=== PATIENT | male | born 1950 | race Caucasian/White ===

== ENCOUNTER → 2017-02-01 | Outpatient (CLI) | payer OTHER | LOC: BHFA 10:30 | PROVIDERS: ATTEND Internal Medicine Cardiovascular Disease | DX: R00.2 Palpitations (principal) ==

== ENCOUNTER → 2017-03-08 | Outpatient (CLI) | payer OTHER | LOC: BHFA 09:30 | PROVIDERS: ATTEND Internal Medicine Cardiovascular Disease | DX: R07.9 Chest pain, unspecified (principal); R06.02 Shortness of breath; R94.31 Abnormal electrocardiogram [ECG] [EKG] | CPT/HCPCS: 78452; 93017; A9500 ==

== ENCOUNTER 2017-03-23 09:32 | Day surgery (SDC) | payer OTHER ==
[2017-03-23] MEDS ORDERED: NS 1,000 ML IV ONE (09:33)
[2017-03-23] MEDS ORDERED: FAMOTIDINE 20 MG TAB PO ONE (09:33)
[2017-03-23] MEDS ORDERED: ASPIRIN EC 325 MG TAB PO ONE (09:33)
[2017-03-23] MEDS ORDERED: DIAZEPAM 5 MG TAB PO ONE (09:33)
[2017-03-23] MEDS ORDERED: diphenhydrAMINE 25 MG CAP PO ONE ×2 (09:33→10:06)
--- NOTE | 2017-03-23 09:58 | CPEKG ---
Heart Rate: 49 RR Interval: 1224 P-R Interval: 212 QRSD Interval: 150 QT Interval: 488 QTC Interval: 441 P [place]: 55 QRS [place]: -79 T Wave [place]: -32 EKG Severity - ABNORMAL ECG - EKG Impression: SINUS BRADYCARDIA EKG Impression: RIGHT BUNDLE BRANCH BLOCK EKG Impression: INFERIOR INFARCT, AGE INDETERMINATE Electronically Signed By: Cr Handy 23-Mar-2017 13:11:16
[2017-03-23] MEDS ORDERED: FAMOTIDINE 20 MG TAB ONE (10:06)
[2017-03-23] MEDS ORDERED: ASPIRIN EC 81 MG TAB PO ONE (10:07)
[2017-03-23] MEDS ORDERED: DIAZEPAM 5 MG TAB ONE (10:07)
[2017-03-23 10:15] LABS: % IMMATURE GRANULYOCYTES 0.4 % (0.0-1.1); ABSOLUTE IMMATURE GRANULOCYTES 0.02 10^3/uL (0.00-0.10); ADD DIFF? NO; ADD MORPH? NO; ADD SCAN? NO; ATYPICAL LYMPHOCYTE FLAG 0 (0-99); FRAGMENT RBC FLAG 0 (0-99); HEMATOCRIT 40.6 % (40.0-51.0); HEMOGLOBIN 15.1 g/dL (13.7-17.5); LEFT SHIFT FLG 0 (0-99); LIPEMIA HEMOLYSIS FLAG 90 (0-99); MEAN CELL HEMOGLOBIN 35.9 pg (27.9-34.1); MEAN CELL HEMOGLOBIN CONCENTR. 37.2 g/dL (32.4-36.7); MEAN CELL VOLUME 96.4 fL (81.5-99.8); MEAN PLATELET VOLUME 9.6 fL (8.7-11.7); PLATELET CLUMPS FLAG 0 (0-99); PLATELET COUNT 162 10^3/uL (150-400); RED BLOOD CELL COUNT 4.21 10^6/uL (4.40-6.38); RED CELL DISTRIBUTION WIDTH 12.9 % (11.5-15.2)
[2017-03-23 10:18] LABS: INR 1.12 (0.83-1.16); PROTIME(PATIENT) 14.6 SEC (12.0-15.0)
[2017-03-23 10:24] LABS: ANION GAP 10 mEq/L (8-16); CARBON DIOXIDE 25 mEq/l (22-31); CHLORIDE 104 mEq/L (97-110); CHOLESTEROL 105 mg/dL (140-220); CHOLESTEROL/HDL RATIO 3.18 RATIO (1.00-4.97); CREATININE 0.9 mg/dL (0.7-1.3); GLOMERULAR FILTRATION RATE > 60; GLUCOSE 98 mg/dL (70-100); HIGH DENSITY LIPOPROTEIN 33 mg/dL (40-65); LDL/HDL RATIO 1.48 RATIO (1.00-3.64); LOW DENSITY LIPOPROTEIN 49 mg/dL (80-100); MAGNESIUM 1.9 mg/dL (1.6-2.3); NON-HIGH DENSITY LIPOPROTEIN 72 mg/dL (90-129); POTASSIUM 4.3 mEq/L (3.5-5.2); SODIUM 139 mEq/L (134-144); TRIGLYCERIDE 119 mg/dL (40-150); VERY LOW DENSITY LIPOPROTEINS 23 mg/dL (8-25)
[2017-03-23] MEDS ORDERED: LIDOCAINE 1% 300 MG/30 ML SDV ONE (12:21)
[2017-03-23] MEDS ORDERED: MIDAZOLAM 2 MG/2 ML VIAL ONE (12:21)
[2017-03-23] MEDS ORDERED: fentaNYL 100 MCG/2 ML INJ ONE (12:21)
[2017-03-23] MEDS ORDERED: IOPAMIDOL (ISOVUE-370) 150 ML BTL IV ONE (12:22)
--- NOTE | 2017-03-23 12:59 | PDDXCAT ---
Diagnostic Cath Note - . Date: 03/23/17 [employer] Teacher: Polina Indication: CCC Class III and IV angina on medical treatment - Procedure Access: right groin Procedure: left heart catheterization - Materials Left Heart Cath size: 6F Left Heart Cath materials: standard multipack (JL4, JR4, pigtail) - Findings-Left Heart Catheterization LAD: LAD arises from nearly a separate ostium from the left coronary cusp. The previously stented LAD diagonal bifurcation is widely patent without evidence of flow-limiting obstructions, dissection, or thrombus. There is evidence of ztgj-qq-[id number] collaterals from both the distal LAD and septal perforators. There is PMAELA III flow. LCX: The circumflex obtuse marginal system has also been previously stented and is widely patent without evidence of significant flow-limiting disease. There is evidence of dygl-se-wyhuc collaterals from the distal dircumflex obtuse marginal. There is PAMELA III flow. There is a kinked eccentric lesion in the circumflex that is takeoff from the left main which is estimated at approx 30%. This is a short lesion and unlikely to be flow-limiting. RCA: The RCA is dominant giving rise to the posterior descending as well as 3 posterolateral ventricular branches. There is evidence of antegrade right-to- right collaterals from the proximal right coronary. There are short bridging collaterals in the region of the chronic total occlusion of the right coronary. EDP: LVEDP 20 mm/Hg LVEF: No LV gram, the EF is known to be 35% by way of Nuclear stress test. Complications: NONE. Estimated blood loss: <50ml Closure method: Angioseal Assessment: The images are unchanged form the pictures taken at the time of his [facility] in 2014. There is widely patent left coronary stents left anterior descending, diagonal and circumflex stents. Chronic total occlusion of the RCA. His EF is now known to be lower and measured at 35%. The patient meets MADIT II criteria for AICD implant. He also qualifies for the placement of a BiV Defibrillator on the basis of discordance and Bifasicular block with declining ejection fraction and NYHA Class III symptoms. these are indications for resynchronization therapy. Plan: See above. Patient Problems: Problems Problem Status Onset Acute ST segment elevation myocardial infarction Acute Atrial fibrillation Acute CAD (coronary artery disease), qagan tayagungin coronary artery Acute Cardiomyopathy Acute S/P coronary artery stent placement Acute
[2017-03-23] MEDS ORDERED: OXYCODONE/APAP 5/325 TAB PO PRN (13:56)
[2017-03-23] MEDS ORDERED: ATROPINE SULFATE 1 MG/10 ML SYR IVP PRN (13:56)
[2017-03-23] MEDS ORDERED: HYDROCODONE/APAP 5/325 TAB PO PRN (13:56)
[2017-03-23] MEDS ORDERED: ONDANSETRON 4 MG/2 ML VIAL IVP PRN (13:56)
[2017-03-23] MEDS ORDERED: NITROGLYCERIN 0.4 MG BTL SL PRN (13:56)
[2017-03-23] MEDS ORDERED: amLODIPine BESYLATE 5 MG TAB PO ONE (16:15)
== END 2017-03-23 17:35 | disposition home or self-care (01) ==
LOC: FCATH 09:32
PROVIDERS: ATTEND Internal Medicine Cardiovascular Disease
PROC: B2111ZZ Fluoroscopy of Multiple Coronary Arteries using Low Osmolar Contrast (ICD-10-PCS; principal; 2017-03-23)
PROC: 4A023N7 Measurement of Cardiac Sampling and Pressure, Left Heart, Percutaneous Approach (ICD-10-PCS; principal; 2017-03-23)
DX: I45.2 Bifascicular block (principal); I49.3 Ventricular premature depolarization; I25.10 Atherosclerotic heart disease of native coronary artery without angina pectoris; Z95.5 Presence of coronary angioplasty implant and graft; I48.91 Unspecified atrial fibrillation; I42.9 Cardiomyopathy, unspecified; R94.39 Abnormal result of other cardiovascular function study; G47.33 Obstructive sleep apnea (adult) (pediatric)
CPT/HCPCS: 93005; 93458; C1887; C1760; J1644; J2250; J3010; Q9967

== ENCOUNTER 2017-03-30 13:09 | Observation (INO) | payer OTHER ==
[2017-03-30] MEDS ORDERED: BACITRACIN IRRIGATION/NS 50,000 UNITS/1,000 ML BTL IRR ONE (13:13)
[2017-03-30] MEDS ORDERED: diphenhydrAMINE 25 MG CAP PO ONE (13:13)
[2017-03-30] MEDS ORDERED: ceFAZolin 2 GM/SWFI 2 GM/20 ML SYR IVP ONE (13:13)
[2017-03-30] MEDS ORDERED: NS 1,000 ML IV ONE (13:13)
[2017-03-30] MEDS ORDERED: DIAZEPAM 5 MG TAB PO ONE (13:13)
--- NOTE | 2017-03-30 13:36 | CPEKG ---
Heart Rate: 54 RR Interval: 1111 P-R Interval: 204 QRSD Interval: 156 QT Interval: 460 QTC Interval: 436 P [place]: 42 QRS [place]: -84 T Wave [place]: -29 EKG Severity - ABNORMAL ECG - EKG Impression: SINUS RHYTHM EKG Impression: RIGHT BUNDLE BRANCH BLOCK EKG Impression: INFERIOR INFARCT, AGE INDETERMINATE Electronically Signed By: Ellis Fish 31-Mar-2017 20:26:32
[2017-03-30 14:00] LABS: INR 1.14 (0.83-1.16); PROTIME(PATIENT) 14.8 SEC (12.0-15.0)
[2017-03-30 14:11] LABS: ANION GAP 11 mEq/L (8-16); CALCIUM 9.5 mg/dL (8.5-10.4); CARBON DIOXIDE 29 mEq/l (22-31); CHLORIDE 104 mEq/L (97-110); CREATININE 0.9 mg/dL (0.7-1.3); GLOMERULAR FILTRATION RATE > 60; GLUCOSE 96 mg/dL (70-100); POTASSIUM 4.3 mEq/L (3.5-5.2); SODIUM 144 mEq/L (134-144)
[2017-03-30 14:16] LABS: % IMMATURE GRANULYOCYTES 0.2 % (0.0-1.1); ABSOLUTE IMMATURE GRANULOCYTES 0.01 10^3/uL (0.00-0.10); ADD DIFF? NO; ADD MORPH? NO; ADD SCAN? NO; ATYPICAL LYMPHOCYTE FLAG 0 (0-99); FRAGMENT RBC FLAG 0 (0-99); HEMATOCRIT 42.7 % (40.0-51.0); HEMOGLOBIN 15.4 g/dL (13.7-17.5); LEFT SHIFT FLG 0 (0-99); LIPEMIA HEMOLYSIS FLAG 90 (0-99); MEAN CELL HEMOGLOBIN 34.8 pg (27.9-34.1); MEAN CELL HEMOGLOBIN CONCENTR. 36.1 g/dL (32.4-36.7); MEAN CELL VOLUME 96.4 fL (81.5-99.8); MEAN PLATELET VOLUME 9.8 fL (8.7-11.7); PLATELET CLUMPS FLAG 0 (0-99); PLATELET COUNT 179 10^3/uL (150-400); RED BLOOD CELL COUNT 4.43 10^6/uL (4.40-6.38); RED CELL DISTRIBUTION WIDTH 12.7 % (11.5-15.2)
[2017-03-30] MEDS ORDERED: LIDO/EPI 1% **for epidural** 30 ML SDV ONE (14:34)
[2017-03-30] MEDS ORDERED: BUPIVACAINE 0.5% 30 ML SDV ONE (14:34)
[2017-03-30] MEDS ORDERED: LIDOCAINE 1% 300 MG/30 ML SDV ONE (14:34)
[2017-03-30] MEDS ORDERED: MIDAZOLAM 2 MG/2 ML VIAL ONE ×3 (14:34→18:09)
[2017-03-30] MEDS ORDERED: fentaNYL 100 MCG/2 ML INJ ONE ×2 (14:34→15:24)
[2017-03-30] MEDS ORDERED: IOPAMIDOL (ISOVUE-300) 100 ML BTL ONE ×3 (14:35→16:37)
[2017-03-30] MEDS ORDERED: ETOMIDATE 40 MG/20 ML INJ ONE (14:36)
--- NOTE | 2017-03-30 15:44 | PDHPUP ---
History & Physical Update H&P update statement: This history and physical update is based on an assessment of the patient which was completed after admission or registration (within 24 hours), but prior to the surgery/procedure. H&P update: H&P reviewed & patient examined, no change in patient's condition since H&P completed
--- NOTE | 2017-03-30 15:45 | PDPROPOC ---
Sedation Plan of Care Sedation Plan of Care: vital signs stable, mental status noted, patient educated of risks, benefits, alternatives, patient can tolerate sedation ASA Classification: ASA 3 Planned drugs: fentanyl, midazolam Mallampati Score: Class 3 Mallampati Reference Image: Patient passed 3-3-2 rule?: Yes
[2017-03-30] MEDS ORDERED: IOPAMIDOL (ISOVUE-300) 150 ML BTL ONE ×2 (16:53→17:43)
[2017-03-30] MEDS ORDERED: CARBOXYMETHYLCELLULOSE 1% 0.4 ML DROPERETTE EACHEYE PRN (19:32)
[2017-03-30] MEDS: HYDROCODONE/APAP 5/325 TAB PO PRN (20:12)
--- NOTE | 2017-03-30 20:20 | CPEKG ---
Heart Rate: 85 RR Interval: 706 P-R Interval: 156 QRSD Interval: 132 QT Interval: 472 QTC Interval: 562 P [place]: 228 QRS [place]: 239 T Wave [place]: -1 EKG Severity - ABNORMAL ECG - EKG Impression: ATRIAL-VENTRICULAR DUAL-PACED RHYTHM Electronically Signed By: Ellis Fish 31-Mar-2017 20:26:23
[2017-03-30] MEDS ORDERED: ATORVASTATIN CALCIUM 10 MG TAB PO SCH (21:00)
[2017-03-30] MEDS: CARVEDILOL 3.125 MG TAB PO SCH (21:00)
[2017-03-31 04:14] LABS: % IMMATURE GRANULYOCYTES 0.5 % (0.0-1.1); ABSOLUTE IMMATURE GRANULOCYTES 0.03 10^3/uL (0.00-0.10); ADD DIFF? NO; ADD MORPH? NO; ADD SCAN? NO; ATYPICAL LYMPHOCYTE FLAG 0 (0-99); FRAGMENT RBC FLAG 0 (0-99); HEMATOCRIT 41.4 % (40.0-51.0); HEMOGLOBIN 15.5 g/dL (13.7-17.5); LEFT SHIFT FLG 0 (0-99); LIPEMIA HEMOLYSIS FLAG 90 (0-99); MEAN CELL HEMOGLOBIN 35.9 pg (27.9-34.1); MEAN CELL HEMOGLOBIN CONCENTR. 37.4 g/dL (32.4-36.7); MEAN CELL VOLUME 95.8 fL (81.5-99.8); MEAN PLATELET VOLUME 9.8 fL (8.7-11.7); PLATELET CLUMPS FLAG 0 (0-99); PLATELET COUNT 142 10^3/uL (150-400); RED BLOOD CELL COUNT 4.32 10^6/uL (4.40-6.38); RED CELL DISTRIBUTION WIDTH 12.7 % (11.5-15.2)
[2017-03-31 04:35] LABS: ANION GAP 12 mEq/L (8-16); CARBON DIOXIDE 23 mEq/l (22-31); CHLORIDE 106 mEq/L (97-110); CREATININE 0.8 mg/dL (0.7-1.3); GLOMERULAR FILTRATION RATE > 60; GLUCOSE 91 mg/dL (70-100); POTASSIUM 4.2 mEq/L (3.5-5.2); SODIUM 141 mEq/L (134-144)
[2017-03-31] MEDS: HYDROCODONE/APAP 5/325 TAB PO PRN ×2 (06:33→11:45)
[2017-03-31] MEDS: CARVEDILOL 3.125 MG TAB PO SCH (08:13)
[2017-03-31] MEDS ORDERED: ASPIRIN 81 MG CHEWABLE TAB PO SCH (09:00)
--- NOTE | 2017-03-31 09:01 | CPEKG ---
Heart Rate: 72 RR Interval: 833 P-R Interval: 152 QRSD Interval: 126 QT Interval: 432 QTC Interval: 473 P [place]: 237 QRS [place]: 251 T Wave [place]: 9 EKG Severity - ABNORMAL ECG - EKG Impression: ATRIAL-VENTRICULAR DUAL-PACED RHYTHM Electronically Signed By: Ellis Fish 31-Mar-2017 20:26:15
[2017-03-31 11:04] VITALS: BP 136/84; PULSE 71; RESP 17; TEMP 97.5; O2SAT 96
--- NOTE | 2017-03-31 16:49 | ASDISCHSUM ---
Discharge Information Plan Status:Home with No Needs Medically Cleared to Leave:03/30/2017 Discharge Date:03/31/2017 02:13 PM D/C Disposition: ADT D/C Disposition:Home, Routine, Self-Care Projected Discharge Date:03/31/2017 12:00 AM Transportation at D/C: Discharge Delay Reason: Follow-Up Date:03/31/2017 12:00 AM Discharge Slot: Final Diagnosis: Placement Information Patient Contact Information Contact Name:JOSSY Relationship: Address:[address] [place] Phone: [facility]/Zip Code:[place] [address] Email: Financial Information Financial Class:MC Primary Plan Desc:MEDICARE OUTPATIENT Primary Plan Number:[id number] Secondary Plan Desc:[employer]OL CASTELAN PPO Secondary Plan Number:[id number] Assessment Information Intervention Information
--- NOTE | 2017-03-31 20:22 | CPIP ---
[f rep st] INVASIVE CARDIAC PROCEDURE DATE OF PROCEDURE: 03/30/2017 PROCEDURE PERFORMED: 1. Biventricular defibrillator placement. 2. Fluoroscopy device. 3. Coronary sinus venography. COMPLICATIONS: None. BOTTLE TESTER: Ellis Fish MD. INDICATIONS/APPROPRIATE USE CRITERIA: The patient has [place] Heart Association class 3 symptoms of heart failure with shortness of breath with mild to moderate exertion. The patient also has a histo ry of ischemic cardiomyopathy with ejection fraction recently documented to be 35% and declining on b est medical therapy. The patient will require placement of a cardiac resynchronization therapy with a biventricular defibrillator. I have explained the risks, benefits, and alternatives of this course of action to the patient who understands, is willing to proceed as planned. The device implanted is an Ilivia 7 HF-T QP DF4 IS 4 pro MRI, serial #[id number]. The atrial lead is a Solia S45, serial #[id number]. The LV lead is a Synthes Pro MRI, serial #[id number]. The defibrillator lead is a Plexa pro MRI S fit S 65, serial #[id number]. PROCEDURE IN DETAIL: After informed consent was obtained, n.p.o. status was confirmed, the patient w as taken to the cardiac catheterization laboratory. The region of the left subclavicular fossa was c leaned, prepped, and draped in sterile fashion. Approximately 15 cc of 1% lidocaine was utilized loc al anesthesia. The patient was placed in the Trendelenburg position. An 18-gauge Cook needle was us ed to gain access to the left subclavian vein x3. The pacer pocket was developed overlying the pecto ralis major fascia. The medial wire was used to place a peel-away sheath and the atrial lead was imp lanted, screwed into place and tested and found to have a P wave amplitude of 0.9, lead impedance 462 ohms with pacing with a threshold of 0.9 at 0.4 milliseconds. The procedure was repeated for the RV lead, sensing R-waves at 10.80, pacing threshold was 0.4 at 0.4 with a pacing impedance of 550 ohms. We then used the lateral wire to place a coronary sinus peel-away sheath. Multiple balloons and wi res as well as catheters were used to ultimately gain access to the coronary sinus. The patient had an unusually vertical takeoff of the coronary sinus from the heart. I required the assistance of Dr. Aquino to implant the LV lead. This was tested and found to have a threshold 2.6 V at 1 millisecond, m easuring R-wave amplitude 24.10, pacing impedance is 839 ohms. Device was set with a shock impedance of 77 ohms. The VT 1 zone is 150 and a monitoring zone only. VT 2 is 176 with ATP burst x3, follow ed by 40 joule shocks x8. VF zone is 210 with ATP burst x1 and then a 40 joule shock x8. The device was brought to the table. The atrial lead serial number was checked, and placed in the appropriatel y leads housing, the set screw firmly applied. These procedures were repeated for the pace sense def ibrillator lead as well as the pace sense LV lead. Device was placed in the pocket and sutured in pl dean with 0 silk. The skin was closed with a 3 layered 2-0 and 3-0 Vicryl suture followed by 4-0 Mac[place]in cryl subcuticular repair. Excellent wound edge apposition and hemostasis were documented. The patie nt tolerated the procedure well without immediate complication, and returned to the post cath recover y unit in good stable condition, where a stat postoperative EKG and chest x-ray will be obtained. /[id number]/MODL
--- NOTE | 2017-04-01 05:38 | GDS ---
[f rep st] DISCHARGE SUMMARY ADMITTING DIAGNOSES: 1. Atrial fibrillation. 2. Coronary artery disease with stent. 3. History of inferior myocardial infarction. 4. Ischemic cardiomyopathy. 5. Obstructive sleep apnea. 6. Planned placement of dual paced automated implantable cardioverter-defibrillator. DISCHARGE DIAGNOSES: 1. Status post placement of dual paced automated implantable cardioverter-defibrillator with no comp lications. 2. As above. HOSPITAL COURSE: The patient is a patient of Dr. Ellis Fish's who was seen in office on 03/21/2017 with long-standing history of atrial fibrillation, coronary artery disease with drug-eluting stent t o the left circumflex, OM, LAD, and RCA with initial presentation of acute inferior SC. He has known cardiomyopathy and obstructive sleep apnea. He had been in [place] for 3 weeks, and reported having increased stress that resulted in experiencing palpitations with no chest pressure or tightness. He did wear a 24-hour Holter monitor placed on 02/01/2017 which showed frequent PACs, 43 runs of suprave ntricular tachycardia, longest run 18 beats with a rate of 141 beats per minute. Premature ventricular contractions infrequently. No runs of ventricular tachycardia. Due to his con tinued experiences resulting in palpitations and known cardiomyopathy, it was recommended that he hav e a Bi-V defibrillator placed due to nonsustained ventricular tachycardia, palpitations with stress, and decreased ejection fraction, as well as underlying conduction system abnormalities and the need f or resynchronization therapy. He was in agreement to proceed with Bi-V defibrillator. He was taken to the laboratory mill[facility] by Dr. Ellis Fish on 03/30/2017 where he was able to successfully place the Bi-V IC D with no complications. He was then taken to PCU for overnight observation where he has done well. He has no significant bleeding or hematoma. He does have swelling around the incisional site with d iscomfort. Pressure dressing was applied, and recommended to use ice for swelling. He has needed to take pain pills to alleviate the discomfort, and will go home with a small supply for comfort. He h as had no shortness of breath or chest pain. He does understand that he cannot use his left arm over shoulder level for 4 weeks, and no heavy lifting, pushing, pulling greater than 10 pounds for 4 week s. He has been up, ambulating with no problems. At this time, he currently is stable for discharge. ALLERGIES: He has no known allergies. MEDICATIONS: He will go home on propylthiouracil 50 mg daily, Prilosec 20 mg daily, multivitamin aleksandra ly, carvedilol 3.125 mg twice daily, Lipitor 5 mg daily, vitamin D3 4,000 units daily, aspirin 162 mg daily, Zantac 75 mg at bedtime, [place] 5/325 mg 1-2 tablets every 6 hours for discomfort. DISCHARGE PLAN: He will follow up in pacer clinic in 1 week for device check and wound check. He wi ll follow up with Dr. Fish in 3-4 weeks. Chest x-ray today shows ICD in place without pneumothorax. Pacemaker/ICD precautions were given verbally and written. No heavy lifting, pushing, pulling greater than 10 pounds for 4 weeks. No using left arm above shoulder level for 4 weeks. Leave dressing in place for 1 week, until seen in device clinic. No shower for 1 week to avoid getting dressing wet. Follow up with Dr. Ellis Fish in 3-4 weeks. He is stable and in no distress at time of discharge. /[id number]/MODL
== END 2017-03-31 14:13 | disposition home or self-care (01) ==
LOC: FCATH 13:09 → F2W 16:55
PROVIDERS: ADMIT Internal Medicine Cardiovascular Disease; ATTEND Internal Medicine Cardiovascular Disease
PROC: 0JH609Z Insertion of Cardiac Resynchronization Defibrillator Pulse Generator into Chest Subcutaneous Tissue and Fascia, Open Approach (ICD-10-PCS; principal; 2017-03-30)
PROC: 02HK3KZ Insertion of Defibrillator Lead into Right Ventricle, Percutaneous Approach (ICD-10-PCS; principal; 2017-03-30)
PROC: 02H63KZ Insertion of Defibrillator Lead into Right Atrium, Percutaneous Approach (ICD-10-PCS; principal; 2017-03-30)
PROC: 02HL3KZ Insertion of Defibrillator Lead into Left Ventricle, Percutaneous Approach (ICD-10-PCS; principal; 2017-03-30)
DX: I47.2 Ventricular tachycardia (principal); I50.9 Heart failure, unspecified; I25.5 Ischemic cardiomyopathy; I48.91 Unspecified atrial fibrillation; I25.10 Atherosclerotic heart disease of native coronary artery without angina pectoris; G47.33 Obstructive sleep apnea (adult) (pediatric); I49.3 Ventricular premature depolarization; Z95.5 Presence of coronary angioplasty implant and graft; Z79.82 Long term (current) use of aspirin
CPT/HCPCS: 33225; 33249; 71010; 71020; 93005; C1769; C1777; C1882; C1898; C1900; J0690; J2250; J3010; Q9967

== ENCOUNTER 2017-04-19 11:47 | Day surgery (SDC) | payer OTHER ==
--- NOTE | 2017-04-19 12:08 | PDPROPOC ---
Sedation Plan of Care Sedation Plan of Care: vital signs stable, mental status noted, patient educated of risks, benefits, alternatives ASA Classification: ASA 3 Planned drugs: other Mallampati Score: Class 3 Mallampati Reference Image: Patient passed 3-3-2 rule?: Yes
== END 2017-04-19 13:05 | disposition home or self-care (01) ==
LOC: FCATH 11:47 → EDSTATUS 11:48 → FCATH 13:05
PROVIDERS: ATTEND Internal Medicine Cardiovascular Disease
PROC: 0HQ5XZZ Repair Chest Skin, External Approach (ICD-10-PCS; principal; 2017-04-19)
DX: T81.30XA Disruption of wound, unspecified, initial encounter (principal); I48.91 Unspecified atrial fibrillation; I25.10 Atherosclerotic heart disease of native coronary artery without angina pectoris; R94.39 Abnormal result of other cardiovascular function study; I25.5 Ischemic cardiomyopathy; G47.33 Obstructive sleep apnea (adult) (pediatric); I49.3 Ventricular premature depolarization; Y65.8 Other specified misadventures during surgical and medical care; Z79.82 Long term (current) use of aspirin; Z95.5 Presence of coronary angioplasty implant and graft

== ENCOUNTER → 2017-10-26 | Outpatient (CLI) | payer OTHER | LOC: BHFA 10:00 | PROVIDERS: ATTEND Internal Medicine Cardiovascular Disease | DX: I42.9 Cardiomyopathy, unspecified (principal) ==

== ENCOUNTER → 2017-11-07 | Outpatient (CLI) | payer OTHER | LOC: BHFA 09:00 | PROVIDERS: ATTEND Internal Medicine Cardiovascular Disease | DX: I48.91 Unspecified atrial fibrillation (principal); I25.10 Atherosclerotic heart disease of native coronary artery without angina pectoris; I42.9 Cardiomyopathy, unspecified; I49.3 Ventricular premature depolarization ==